=== PATIENT | male | born 1970 | race Caucasian/White ===

== ENCOUNTER 2018-09-24 10:28 | Inpatient (IN) | payer OTHER ==
[~2018-09-24] VITALS: Ht 177.8 cm; Wt 91.3 kg
[2018-09-24 12:00] VITALS: BP 160/92
--- NOTE | 2018-09-24 12:00 | NUR ---
48 year old MALE admitted to room # 406-2 for stabilization. 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 Compliant with admission procedure. Patient denies any anxiety, but is unable to sit still, taps toes to floor continuously, looks about room, unable to focus eyes on nurse during interview. See assessment forms for additional information about patient status.
--- NOTE | 2018-09-24 12:15 | NUR ---
PATIENT MEETS [facility], CINA=15. PATIENT HAS A PRE-SCHEDULED APPOINTMENT WITH HIS DOCTOR FOR SUBUTEX ON SUNDAY, SEPTEMBER 27, 2018 AT 11:30AM. PATIENT IS ALSO INTERESTED IN FOLLOWING UP WITH [facility] FOR OUTPATIENT COUNSELING. [facility] WILL SCHEDULED THE PATIENT'S INITIAL APPOINTMENT FOR COUNSELING. DEBORAH FRANCO MS HOME ATTENDANT
[2018-09-24 12:39] LABS: BASO % 0.3 % (0.0-1.0); EOS % 0.3 % (1.0-4.0); HEMATOCRIT 46.6 % (42.0-52.0); HEMOGLOBIN 15.6 g/dl (14.0-18.0); LYMPH # 1.1 10*3/uL (1.3-4.4); LYMPH % 15.9 % (27.0-41.0); MEAN CELL VOLUME 91.9 fl (80.0-94.0); MEAN CORPUSCULAR HGB 30.8 pg (27.0-31.0); MEAN CORPUSCULAR HGB CONC 33.5 g/dl (33.0-37.0); MEAN PLATELET VOLUME 10.5 fl (9.6-12.3); MONO # 0.4 10*3/uL (0.1-1.0); MONO % 6.4 % (3.0-9.0); NEUT # 5.3 10*3/uL (2.3-7.9); NEUT % 76.8 % (47.0-73.0); PLATELET COUNT AUTOMATED 249 10*3/uL (130-400); RED BLOOD COUNT 5.07 10*6/uL (4.50-5.90); RED CELL DISTRI WIDTH 13.2 % (0-14.5); WHITE BLOOD COUNT 6.8 10*3/uL (4.8-10.8)
[2018-09-24 13:00] LABS: ALBUMIN 4.2 gm/dl (3.1-4.5); ALKALINE PHOSPHATASE 45 U/L (45-117); BUN 13 mg/dl (7-24); CHLORIDE 107 mmol/L (98-107); SGOT/AST 20 IU/L (3-35); SGPT/ALT 48 U/L (12-78); SODIUM 142 mmol/L (136-145); TOTAL PROTEIN 7.7 gm/dL (6.4-8.2)
[2018-09-24 13:02] LABS: ETHYL ALCOHOL < 3.0 mg/dl (<3)
[2018-09-24] MEDS ORDERED: CRESTOR40 M1 PO (13:04)
[2018-09-24] MEDS ORDERED: CLOPIDOGREL75 MG PO (13:10)
[2018-09-24] MEDS ORDERED: CARDURA1 M1 PO (13:11)
[2018-09-24] MEDS ORDERED: ZESTRIL40 MG PO (13:13)
[2018-09-24] MEDS ORDERED: HYDRALAZINE HC100 MG PO (13:14)
[2018-09-24] MEDS ORDERED: XANAX0.25 MG PO (13:16)
[2018-09-24] MEDS ORDERED: DILTIAZEM 24HR360 MG PO (13:17)
[2018-09-24] MEDS ORDERED: DEPO TESTOS200 MG/ML IM (13:19)
[2018-09-24] MEDS ORDERED: Imdur SA60 MG PO (13:20)
--- NOTE | 2018-09-24 13:21 | NUR ---
MED REC UPDATED WITH PT AT BEDSIDE. COPY OF MED LIST ON CHART.
[2018-09-24 13:54] LABS: BILIRUBIN NEGATIVE (NEGATIVE); BLOOD NEGATIVE (NEGATIVE); CLARITY CLEAR (CLEAR); COLOR YELLOW (YELLOW); GLUCOSE NEGATIVE (NEGATIVE); KETONE NEGATIVE (NEGATIVE); LEUKO ESTERASE NEGATIVE (NEGATIVE); NITRITE NEGATIVE (NEGATIVE); UROBILINOGEN 0.2 E.U./dl (0.2-1.0)
[2018-09-24 14:03] LABS: URINE AMPHETAMINES < 1000 (1000ng/ml); URINE BARBITURATES > 200 (200ng/ml); URINE BENZODIAZEPINES < 200 (200ng/ml); URINE CANNABINOIDS (THC) < 50 (50ng/ml); URINE COCAINE < 300 (300ng/ml); URINE METHADONE < 300 (300ng/ml); URINE OPIATES > 300 (300ng/ml)
[2018-09-24 14:06] LABS: URINE PHENCYCLIDINE < 25 (25ng/ml)
--- NOTE | 2018-09-24 14:17 | NUR ---
MADE AWARE THAT HOME MEDS HAVE BEEN RECONCILLED AND WILL NEED TO REORDER THE APPROPRIATE MEDS WHEN POSSIBLE. ALSO INFORMED OF ALLERGIES AND ORDERED TO DISCONTINUE MOTRIN AND REQUIP AT THIS TIME. SEE MAR.
[2018-09-24 14:20] LABS: BACTERIA TRACE; RBC 0-2 rbc/hpf (0-2); WBC 0-2 wbc/hpf (0-5)
--- NOTE | 2018-09-24 15:20 | NUR ---
CALLED TO PTs ROOM FROM [facility]. DAVID GIVEN. GOLDEN LEDEZMA.
[2018-09-24 16:00] VITALS: BP 134/76
--- NOTE | 2018-09-24 16:27 | NUR ---
PT GIVEN ROBAXIN AND ZOFRAN AT THIS TIME FOR C/O NAUSEA AND MUSCLE ACHES. WILL MONITOR, CALL LIGHT IN REACH. PRN BENTYL SOMEWHAT EFFECTIVE PER PT.
[2018-09-24 20:00] VITALS: BP 140/80
--- NOTE | 2018-09-24 20:39 | NUR ---
PT ASLEEP IN BED. CALL LIGHT WITHIN REACH, BED LOW.
[2018-09-25] VITALS: BP 115/66
[2018-09-25 08:00] VITALS: BP 122/78
--- NOTE | 2018-09-25 08:16 | NUR ---
PATIENT RESTING QUIETLY IN BED. NO DISTRESS NOTED. RESPIRATIONS EASY, REGULAR ON RA. DENIES ANY SOB. DENIES ANY PAIN/DISCOMFORT AT THIS TIME. DENIES ANY N/V. WILL CONTINUE TO MONITOR. VSS. CALL LIGHT WITHIN REACH
--- NOTE | 2018-09-25 08:29 | NUR ---
PATIENT LAYING IN BED. AWAKE, ALERT, AND ORIENTED. VERY PLEASANT AT THIS TIME. BED IN LOWEST POSITION. CALL LIGHT IN REACH. NO COMPLAINTS AT THIS TIME. ALEX[place]RIA FRANCOIS.RCC
--- NOTE | 2018-09-25 09:00 | NUR ---
PATIENT SHOWERED SELF AND BRUSHED TEETH. NO PAIN NOR COMPLAINTS AT THIS TIME. ALEXANDRIA FRANCOIS.RCC
--- NOTE | 2018-09-25 10:29 | NUR ---
OFFERED PATIENT PRN MEDICATION TO HELP HIM RELAX, PATIENT REFUSED. BED IN LOWEST POSITION. CALL LIGHT IN REACH. ALEXANDRIA FRANCOIS.RCC
[2018-09-25 12:00] VITALS: BP 124/80
--- NOTE | 2018-09-25 12:28 | NUR ---
SITTING UP IN BED, TALKING ON HIS PHONE. NO COMPLAINTS AT THIS TIME. BED IN LOWEST POSITION. CALL LIGHT WITHIN REACH. ALEX[place]RIA FRANCOIS.RCC
--- NOTE | 2018-09-25 13:35 | NUR ---
OFFERED PRN MEDICATION FOR RESTLESSNESS, PATIENT REFUSED. NO COMPLAINS AT THIS TIME. BED IN LOWEST POSITION. CALL LIGHT IN REACH. MALCOLM FRANCOIS.RCC
--- NOTE | 2018-09-25 13:55 | NUR ---
NO CHANGES HAVE BEEN MADE TO THE PATIENT'S AFTERCARE PLAN. PATIENT WILL FOLLOW UP WITH DR. CONDON ON THURSDAY, SEPTEMBER 27, 2018 BY 11:30 AM. HE IS ALSO SCHEDULED FOR IOP WITH [facility] ON TUESDAY, OCTOBER 02, 2018 AT 9:30AM. PATIENT AGREES TO HIS AFTERCARE PLAN. DEBORAH FRANCO MS CERTIFIED SCRUB TECH
[2018-09-25 16:00] VITALS: BP 114/69
--- NOTE | 2018-09-25 16:00 | NUR ---
Patient resting quietly with no c/o discomfort. Respirations easy and regular. Vital signs stable. No overt distress. VALENTE BECERRIL
[2018-09-25 20:00] VITALS: BP 134/86
--- NOTE | 2018-09-26 01:43 | NUR ---
24HR CHART CHECK COMPLETED
[2018-09-26 08:00] VITALS: BP 124/78
--- NOTE | 2018-09-26 08:32 | NUR ---
PT REQUESTED PO ZOFRAN PER PRN ORDER FOR C/O NAUSEA. WILL MONITOR EFFECTIVENESS. VSS. CALL LIGHT WITHIN REACH.
--- NOTE | 2018-09-26 11:56 | NUR ---
PT MEDICATED WITH PO DULCOLAX PER PRN ORDER FOR C/O CONSTIPATION. ABD SOFT, NON-DISTENDED. WILL MONITOR EFFECTIVENESS. IVF INITIATED AT THIS TIME PER ORDER.
[2018-09-26 12:00] VITALS: BP 128/84
[2018-09-26 16:00] VITALS: BP 139/86
--- NOTE | 2018-09-26 17:12 | NUR ---
ROUTINE SUBUTEX GIVEN AT THIS TIME. NO VOICED COMPLAINTS. CALL LIGHT WITHIN REACH.
[2018-09-26 19:55] VITALS: BP 170/98
--- NOTE | 2018-09-26 19:58 | NUR ---
PATIENT'S BP 170/98 MANUALLY. PO IMDUR SCHEDUELED FOR 2200 ADMINISTERED EARLY. WILL MONITOR EFFECTIVENESS. PATIENT DENIES ANY SYMPTOMS AT PRESENT TIME. WILL MONITOR. CALL LIGHT LEFT IN REACH.
[2018-09-26 20:00] VITALS: BP 157/96
--- NOTE | 2018-09-26 21:10 | NUR ---
NOTIFIED OF PATIENT'S BP 174/92 MANUALLY FOLLOWING IMDUR. DISCUSSED D/C OF BP MEDS DUE TO DIZZINESS AND IVF INFUSING AT 100 ML/HR. NEW ORDERS TO FOLLOW.
--- NOTE | 2018-09-26 21:45 | NUR ---
IVF RATE DECREASED TO 80 PER ORDER.
--- NOTE | 2018-09-26 23:49 | NUR ---
ASSUME CARE OF PATIENT. RESTING COMFORTABLY IN BED. NO VOICED COMPLAINTS AT THIS TIME. PLEASANT/COOPERATIVE WITH CARE. DENIES NEED FOR PRN MEDICATIONS. BED IN LOW POSITION, WHEELS LOCKED, CALL LIGHT IN REACH. WILL MONITOR.
[2018-09-27] VITALS: BP 140/91
[2018-09-27 00:59] VITALS: BP 140/88
--- NOTE | 2018-09-27 02:34 | NUR ---
PATIENT RESTING QUIETLY IN BED. NO VOICED COMPLAINTS AT THIS TIME. CALL LIGHT IN REACH
--- NOTE | 2018-09-27 06:01 | NUR ---
PATIENT MEDICATED WITH PRN TYLENOL ORDERD FOR C/O A HEADACHE
[2018-09-27 06:58] LABS: BASO % 0.3 % (0.0-1.0); EOS # 0.1 10*3/uL (0.0-0.4); EOS % 1.5 % (1.0-4.0); HEMATOCRIT 39.8 % (42.0-52.0); HEMOGLOBIN 13.3 g/dl (14.0-18.0); LYMPH # 1.6 10*3/uL (1.3-4.4); LYMPH % 22.5 % (27.0-41.0); MEAN CELL VOLUME 93.2 fl (80.0-94.0); MEAN CORPUSCULAR HGB 31.1 pg (27.0-31.0); MEAN CORPUSCULAR HGB CONC 33.4 g/dl (33.0-37.0); MEAN PLATELET VOLUME 10.9 fl (9.6-12.3); MONO # 0.6 10*3/uL (0.1-1.0); MONO % 8.4 % (3.0-9.0); NEUT # 4.8 10*3/uL (2.3-7.9); PLATELET COUNT AUTOMATED 219 10*3/uL (130-400); RED BLOOD COUNT 4.27 10*6/uL (4.50-5.90); RED CELL DISTRI WIDTH 12.7 % (0-14.5); WHITE BLOOD COUNT 7.1 10*3/uL (4.8-10.8)
[2018-09-27 07:15] LABS: CREATININE 1.12 mg/dL (0.70-1.30)
[2018-09-27 08:00] VITALS: BP 148/89
--- NOTE | 2018-09-27 10:10 | NUR ---
Discharge instructions reviewed with patient/family. Patient receptive and verbalizes understanding. Follow-up care arranged. Written instructions given to patient/family. BHARGAV BELTRAN
== END 2018-09-27 10:10 | disposition home or self-care (01) | DRG 897 ==
LOC: 4E 10:28
PROVIDERS: Student in an Organized Health Care Education/Training Program; ADMIT Internal Medicine
DX: F11.23 Opioid dependence with withdrawal (principal); F13.10 Sedative, hypnotic or anxiolytic abuse, uncomplicated; R10.84 Generalized abdominal pain; F41.9 Anxiety disorder, unspecified; I10 Essential (primary) hypertension; E78.5 Hyperlipidemia, unspecified; I25.10 Atherosclerotic heart disease of native coronary artery without angina pectoris; I25.2 Old myocardial infarction; Z95.0 Presence of cardiac pacemaker; Z95.5 Presence of coronary angioplasty implant and graft; Z90.49 Acquired absence of other specified parts of digestive tract; Z95.1 Presence of aortocoronary bypass graft; Z88.9 Allergy status to unspecified drugs, medicaments and biological substances